=== PATIENT | male | born 1945 | race Caucasian/White ===

== ENCOUNTER 2018-02-01 08:13 | Outpatient (CLI) | payer OTHER ==
[~2018-02-01 08:13] MED LIST: DICLOFENAC POTA50 MG PO; NORFLEX100MG PO
== END 2018-02-01 08:39 | disposition home or self-care (01) ==
LOC: MAMO-SONO 08:13
DX: I86.1 Scrotal varices (principal)

== ENCOUNTER 2018-02-01 10:46 | Outpatient (CLI) | payer OTHER | END 2018-02-01 10:51 | disposition home or self-care (01) | LOC: LAB 10:46 | DX: N40.1 Benign prostatic hyperplasia with lower urinary tract symptoms (principal); Z51.81 Encounter for therapeutic drug level monitoring ==

== ENCOUNTER 2018-02-06 09:19 | Outpatient (CLI) | payer OTHER | END 2018-02-06 15:51 | disposition home or self-care (01) | LOC: TOM 09:19 | DX: N40.1 Benign prostatic hyperplasia with lower urinary tract symptoms (principal) | CPT/HCPCS: 74178; Q9965 ==